=== PATIENT | male | born 1950 | race Caucasian/White ===

== ENCOUNTER → 2020-11-24 | Outpatient (CLI) | payer MEDICARE, BC ==
[~2020-11-24] MED LIST: AZELASTINE137 MCG/0.; CLARITIN10 MG PO; CRESTOR10 MG PO; DILTIAZEM ER120 M1 PO; FLOVENT 220.1 GM/INH INH; GLIMEPIRIDE4 MG PO; IBUPROFEN800 MG PO; JARDIANCE25 MG PO; METFORMIN HCL1000 MG PO; NASONEX17 GM; PROAIR DIGIHAL90 MCG INH; ST. JOSEPH ASPI81 M1 PO; ZITHROMAX250 MG PO
== END ==
LOC: HEART 5 09:02
DX: R06.02 Shortness of breath (principal); J98.4 Other disorders of lung
CPT/HCPCS: 94060; 94729

== ENCOUNTER → 2020-12-14 | Day surgery (SDC) | payer MEDICARE, BC | END | disposition home or self-care (01) | LOC: OR 07:35 | DX: K22.2 Esophageal obstruction (principal); K21.00 Gastro-esophageal reflux disease with esophagitis, without bleeding; K31.9 Disease of stomach and duodenum, unspecified; K44.9 Diaphragmatic hernia without obstruction or gangrene; E11.9 Type 2 diabetes mellitus without complications; E78.00 Pure hypercholesterolemia, unspecified; G43.909 Migraine, unspecified, not intractable, without status migrainosus; Z88.5 Allergy status to narcotic agent; Z79.84 Long term (current) use of oral hypoglycemic drugs; Z79.82 Long term (current) use of aspirin; Z79.899 Other long term (current) drug therapy | CPT/HCPCS: 82962; J2704; J7040 ==

== ENCOUNTER → 2022-05-10 | Outpatient (CLI) | payer MEDICARE, BC | LOC: HEART 192 08:30 → ECHO 08:40 | DX: I10 Essential (primary) hypertension (principal); R06.02 Shortness of breath; I08.0 Rheumatic disorders of both mitral and aortic valves | CPT/HCPCS: ECHO; 93306 ==